=== PATIENT | male | born 2000 | race Caucasian/White ===

== ENCOUNTER → 2024-05-20 14:10 | Outpatient (REF) | payer BC, SELFPAY | LOC: RAD 14:10 | PROVIDERS: ATTENDING PHYSICIAN Physician Assistant; FAMILY PHYSICIAN Pediatrics | DX: M54.9 Dorsalgia, unspecified (principal); M79.643 Pain in unspecified hand | CPT/HCPCS: 72072; 72114; 73120 ==

== ENCOUNTER 2024-07-28 14:57 | Emergency (ER) | payer BC, SELFPAY ==
--- NOTE | 2024-07-28 15:19 | ED.GENMED ---
History of Present Illness
General
Chief Complaint: Crisis Evaluation
Source: patient
Exam Limitations: none
Time Seen by Provider: 07/28/24 15:06
History of Present Illness
History of Present Illness:
See MDM
Past History
Past History
ED Past Medical History: Other (ADHD)
ED Past Surgical History: None
Social History
Tobacco: Non-smoker
Alcohol: None
Drug: None
Phy Exam
Physical Exam
Physical Exam:
See MDM
Course
Orders/Labs/Results
Orders:
Orders
07/28/24 Dinner
Regular
At Your Request: Full Participation
Does patient need a safe tray?: Yes
07/28/24 15:05
1:1 Observation - Suicide/ Violent Behavior As Directed
Crisis Consult Urgent
Reason for Consult: SI
07/28/24 15:33
Alcohol Urgent
Complete Blood Count/With Diff Urgent
Comprehensive Metabolic Panel Urgent
07/28/24 16:08
Urine Drug Abuse Screen Urgent
Date Specimen was Collected: 07/28/24
Time Specimen was Collected: 16:07
07/28/24 19:00
Clomipramine HCl [Anafranil] 100 mg PO QPM
07/28/24 22:00
Duloxetine Delayed Release [Cymbalta Delayed Release] 60 mg PO HS
Abnormal Lab Results
07/28/24 07/28/24
15:33 16:08
MPV 11.5 H fL
(7.4-10.4)
Absolute Monos (auto) 0.7 H 10^3/uL
(0.1-0.6)
Glucose 124 H mg/dl
(70-99)
U Marijuana (THC) Screen Positive H
(Negative)
07/28/24 15:33
07/28/24 15:33
Vital Signs
Initial and Last Documented VS:
Initial Vital Signs
Temp Pulse Resp Pulse Ox
97.8 F 127 18 97
07/28/24 15:02 07/28/24 15:02 07/28/24 15:02 07/28/24 15:02
Last Documented Vital Signs
Temp Pulse Resp BP Pulse Ox
97.8 F 110 20 149/86 98
07/28/24 15:02 07/28/24 15:38 07/28/24 15:38 07/28/24 15:38 07/28/24 15:38
MDM/Problems Addressed
Differential Diagnosis Includes:
HPI and MDM Narrative:
24-year-old male presenting per request of his therapist. Patient states he is here for an evaluation for possible inpatient psychiatric stay. Patient told his therapist that he is having increasing intrusive thoughts and thoughts of hurting
himself. Although he denies a specific plan, he states that he has thought of shooting himself. Patient states there was a gun at work and he was holding it recently and thinking about shooting himself. Patient states he has been struggling with
intrusive thoughts and has been having thoughts of hurting others and hurting his parents.
Will have crisis evaluate but patient would likely benefit from inpatient psychiatric stay
Physical exam
General: Well appearing and non-toxic
HEENT: protecting airway
Neck: appears supple
CV: No evidence of cyanosis
Resp: No accessory muscle use
Abd: Non-distended
Extremities: No deformities
Neuro: alert
Psych: Flat affect
Skin: Intact
Problems Addressed including Acute and Chronic Conditions affecting care:
1. Suicidal thoughts
Acuity: acute
Prognosis: unstable
Details: Will have crisis evaluate. Patient likely benefit from inpatient psychiatric stay
Updates
Crisis will start bed search. Patient signed 201
Differential Diagnosis (but not limited to): Depression, suicidal thoughts
Testing considered: Salicylate and Tylenol level but he denies any overdose
Drug therapy (if applicable): OTC meds, please see d/c instruction regarding Rx drugs
Amount and/or Complexity of Data Reviewed
Clinical info obtained from: Patient
External data reviewed: N/A
Labs I independently reviewed (but not limited to): WBC normal
Radiology: N/A
Pulse Ox: not hypoxic
EKG independently reviewed: N/A
Back Roll Lathe Operator: N/A
Critical Care: N/A
Risk of Complication:
Social Determinants of health: Good social support
Discussed with other providers: Crisis
Escalation of Care includes Admit/Obs: Given the patient is high risk of hurting himself, crisis has started bed search
Occasional wrong word or 'sound a like' substitutions may have occurred due to the inherent limitations of voice recognition software. Read the chart carefully and recognize, using context, where substitutions have occurred.
*Critical Care Note
Total Time (30-74mins, 75-104mins- exclusive of procedures): Not Applicable
ED Attending Note
-
Portions of this chart may have been created with voice recognition software.� Occasional wrong word or��sound alike� substitutions may have occurred due to the inherent limitations of voice recognition software.
Discharge Plan
Departure
Patient Disposition: Psych Facility
Date of Disposition: 07/28/24
Time of Disposition: 18:19
Discharge Problem:
Depression
Prescriptions:
No Action
dextroamphetamine-amphetamine [Adderall] 20 MG tablet
20 mg PO DAILYPRN PRN (Reason: school)
dextroamphetamine-amphetamine [Adderall XR] 30 MG capsule,extended release 24hr
30 mg PO DAILYPRN PRN (Reason: school)
acetaminophen 500 mg Tablet
500 - 1,000 mg PO TIDPRN PRN (Reason: mild pain)
ibuprofen 200 mg Tablet
600 - 800 mg PO TIDPRN PRN (Reason: mild pain)
clomipramine 25 mg capsule
100 mg PO QPM
duloxetine 30 mg capsule,delayed release(DR/EC)
60 mg PO HS
cholecalciferol (vitamin D3) 50 mcg (2,000 unit) Tablet
100 mcg PO DAILY
Referrals:
Ed Garcia MD [Family Provider] -
Interventions
Interventions:
*Risk Screen - Suicide Last Done: 07/28/24 15:04
*General Assessment Last Done: 07/28/24 15:04
*Neglect/Abuse Screening Last Done: 07/28/24 15:04
ED-Psychological Assessment Last Done: 07/28/24 15:40
Discharge Date and Time
Print Language: [id number]
[2024-07-28 15:36] VITALS: BMI 48.9
[2024-07-28 15:38] VITALS: BP 149/86
[2024-07-28 15:48] LABS: % Basophils 0.3 % (0-2); % Eosinophils 1.2 % (0-6); % Immature Granulocytes 0.4 % (0-0.5); % Lymphocytes 22.5 % (20.5-51.1); % Monocytes 7.3 % (1.7-9.3); % Neutrophils 68.3 % (42.2-75.2); Absolute Eosinophils 0.1 10^3/uL (0-0.7); Absolute Lymphocytes 2.1 10^3/uL (1.2-3.4); Absolute Monocytes 0.7 10^3/uL (0.1-0.6); Absolute Neutrophils 6.3 10^3/uL (1.4-6.5); Hematocrit 42.1 % (39.0-52.0); Hemoglobin 14.4 g/dL (13.0-18.0); Mean Corp Hgb Conc. 34.2 g/dL (33.0-37.0); Mean Corpuscular Hgb 29.4 pg (27.0-31.0); Mean Corpuscular Volume 85.9 fL (80.0-94.0); Mean Platelet Volume 11.5 fL (7.4-10.4); Nucleated Red Blood Cells % 0 % (-); Platelet Count 234 10^3/uL (130-400); White Blood Cell Count 9.3 10^3/uL (4.8-10.8)
[2024-07-28 16:02] LABS: ALT (SGPT) 28 U/L (0-50); AST (SGOT) 23 U/L (17-59); Albumin 4.7 g/dl (3.5-5.0); Alkaline Phosphatase 73 U/L (38-126); Blood Urea Nitrogen 18 mg/dl (9-20); Calcium 9.6 mg/dl (8.4-10.2); Carbon Dioxide 28 mmol/L (22-30); Chloride 101 mmol/L (98-107); Estimated Creatinine Clearance > 125 ml/min; Glucose 124 mg/dl (70-99); Potassium 4.6 mmol/L (3.5-5.1); Sodium 139 mmol/L (135-145); Total Bilirubin 0.3 mg/dl (0.2-1.3); Total Protein 6.9 g/dl (6.3-8.2); eGFR > 60.00
[2024-07-28 16:06] LABS: Alcohol None Detected
[2024-07-28 16:51] LABS: Amphetamines Negative (Negative); Barbiturates Negative (Negative); Benzodiazepines Negative (Negative); Buprenorphine Negative (Negative); Cocaine Negative (Negative)
[2024-07-28 16:52] LABS: Marijuana Positive (Negative); Methadone Negative (Negative); Methamphetamines Negative (Negative); Opiates Negative (Negative); Phencyclidine Negative (Negative); Tricyclic Antidepressants Negative (Negative)
== END 2024-07-28 18:28 ==
LOC: EMR 14:57
PROVIDERS: EMERGENCY PHYSICIAN Student in an Organized Health Care Education/Training Program; FAMILY PHYSICIAN Pediatrics
DX: F32.A Depression, unspecified (principal); R45.851 Suicidal ideations
CPT/HCPCS: 99285; 80053; 80306; 82077; 85025